=== PATIENT | female | born 1955 ===

== ENCOUNTER 2021-03-15 10:30 | Inpatient (IN) | payer OTHER ==
[~2021-03-15] VITALS: Ht 160 cm; Wt 83.9 kg
[2021-03-15] MEDS ORDERED: ZESTORETIC 10-1 EACH PO (16:30)
[2021-03-15] MEDS ORDERED: ZOCOR40 MG PO (16:30)
[2021-03-15] MEDS ORDERED: KAPVAY0.1 MG PO (16:30)
[2021-03-15] MEDS ORDERED: TYLENOL ARTHRI650 MG PO (16:31)
[2021-03-21] MEDS ORDERED: GABAPENTIN100 M2 (07:59)
== END 2021-03-24 16:06 | disposition home or self-care (01) | DRG 331 ==
LOC: SURH 03-21 05:30 → O/R 03-21 05:30 → SURH 03-21 07:00
PROVIDERS: ADMIT Colon & Rectal Surgery; ATTEND Colon & Rectal Surgery
PROC: 3E0F7SF Introduction of Other Gas into Respiratory Tract, Via Natural or Artificial Opening (ICD-10-PCS; 2021-03-21)
PROC: 0DBF0ZZ Excision of Right Large Intestine, Open Approach (ICD-10-PCS; principal; 2021-03-21 07:00)
DX: C18.0 Malignant neoplasm of cecum (principal); I10 Essential (primary) hypertension; E78.5 Hyperlipidemia, unspecified; E87.6 Hypokalemia